=== PATIENT | male | born 1970 | race Caucasian/White ===

== ENCOUNTER 2016-11-25 15:55 | Emergency (ER) | payer OTHER ==
[~2016-11-25] VITALS: Ht 175.3 cm; Wt 104.5 kg
[~2016-11-25 15:55] MED LIST: ONDA4TAB7 SL
[2016-11-25 16:00] VITALS: BP 137/92; PULSE 87; TEMP 36.7; O2SAT 94; Ht 175.3 cm; Wt 104.5 kg
[2016-11-25] MEDS ORDERED: AMOX875T PO (16:13)
[2016-11-25] MEDS ORDERED: DIPHTHERIA/TETANUS/PERTUSSIS 0.5 ML SYR/VIAL IM. ONE (16:15)
[2016-11-25] MEDS ORDERED: ASCO10003 PO (16:21)
--- NOTE | 2016-11-25 16:23 | EMERGENCY ROOM VISIT NOTE ---
History First contact with patient: 16:04 Chief Complaint: BITE Stated Complaint: DOG BITE History of Present Illness The patient is a 46 year old male who presents to the Emergency Room with complaints of a dog bite to his left hand. This injury happened approximately one hour ago at work. 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 He reports standing on a porch, and a dog running up behind him. The patient reports attempting to push the dog away and was bitten on the left third and fourth fingers. He denies any significant pain, loss of function, paresthesias or numbness of the hand or fingers. She and is uncertain of his last tetanus immunization. He rates his discomfort a 2 out of 10. The patient is [id number]. The patient reports that the owner/operator did show him his rabies tags which was up-to-date. Review of Systems 10 system review was performed and was negative except for pertinent positives and negatives as indicated in history of present illness Past Medical/Surgical History Medical Problems: (1) Calculus Of Ureter (2) Diaphragmatic Hernia (3) Diverticulitis Colon (W/O Ment Of Hemorrhage) Surgical Problems: (1) History of appendectomy Family History No significant family history Social History Smoking Status: Never Smoker Smokeless Tobacco Use: Yes Alcohol Use: occasionally Marital Status: Housing Status: lives with significant other Occupation Status: employed Current/Historical Medications Scheduled Amoxicillin & Pot Clavulanate (Augmentin 875-125 mg), 1 TAB PO BID Scheduled PRN Ondansetron (Zofran Odt), 1-2 TABS SL Q6H PRN for Nausea Allergies Uncoded Allergies: PERCOCET (Allergy, Unknown, ITCHING, 12/31/03) Physical Exam Vital Signs Date Time Temp Pulse Resp B/P Pulse Ox O2 Delivery O2 Flow Rate FiO2 11/25/16 16:00 36.7 87 18 137/92 94 Room Air Physical Exam CONSTITUTIONAL: Healthy and well nourished. Alert and oriented X 3 with positive affect. HEENT: Normocephalic, atraumatic. Pupils equal, round and reactive. NECK: Full active range of motion without discomfort. MUSCULOSKELETAL: Examination of the left hand shows a small puncture wound to the dorsal third and fourth fingers over the middle phalanges. The patient has full flexion and extension of the fingers against resistance without any loss of strength or significant discomfort. Capillary refill is less than 2 seconds. INTEGUMENTARY: No rash or other significant dermatologic conditions noted. NEUROLOGIC: Left hand and fingers are sensory intact. Medical Decision & Procedures ED Course Patient history and physical exam were performed. Nurse's notes were reviewed. The patient was administered Adacel IM. The wounds were cleansed and covered with antibiotic bandages. The patient was provided a prescription for Augmentin. He was instructed to watch for any signs of infection. Ibuprofen or Tylenol as needed for pain. Follow-up with Worker's Compensation physician as needed, or return to the emergency department for any concerns. The patient was happy with plan of care, voiced understanding of all discharge instructions , and denied any significant pain at the time of discharge. Medical Decision Impression Primary Impression: Dog bite of multiple sites of left hand and fingers Additional Impression: Work related injury Departure Information Dispostion Home / Self-Care Prescriptions Amoxicillin & Pot Clavulanate (Augmentin 875-125 mg) 1 Tab Tab 1 TAB PO BID for 5 Days, #10 TAB Prov: Wesley Villatoro PA 11/25/16 Forms HOME CARE DOCUMENTATION FORM, IMPORTANT VISIT INFORMATION Patient Instructions A Signature Page, [facility] Additional Instructions Complete all Augmentin antibiotics as prescribed. Keep wounds clean and covered with an antibiotic ointment and bandage until they heal. Watch for any developing infection. Ibuprofen or Tylenol as needed for pain.
== END 2016-11-25 16:25 | disposition home or self-care (01) ==
LOC: C.EDB 15:56 → C.EDD 16:25
DX: S61.402A Unspecified open wound of left hand, initial encounter (principal); W54.0XXA Bitten by dog, initial encounter; Y99.0 Civilian activity done for income or pay; N20.1 Calculus of ureter; K44.9 Diaphragmatic hernia without obstruction or gangrene; F17.200 Nicotine dependence, unspecified, uncomplicated; Z23 Encounter for immunization

== ENCOUNTER 2018-01-11 11:43 | Emergency (ER) | payer OTHER ==
[~2018-01-11] VITALS: Ht 175.3 cm; Wt 110.0 kg
[~2018-01-11 11:43] MED LIST changes: +ASCO10003 PO; -ONDA4TAB7 SL
[2018-01-11 11:48] VITALS: TEMP 36.9; O2SAT 96; Ht 175.3 cm; Wt 110.0 kg
[2018-01-11] MEDS ORDERED: SODIUM CHLORIDE 0.9% 1000ML 1,000 ML IV STA (12:11)
[2018-01-11] MEDS ORDERED: ACETAMINOPHEN 500 MG TAB PO STA (12:23)
[2018-01-11] MEDS ORDERED: IBUPROFEN 600 MG TAB PO STA (12:23)
[2018-01-11 12:26] LABS: BASO % 0.1 %; BASO ABS # 0.01 K/uL (0-0.2); EOS % 2.9 %; HEMATOCRIT 45.6 % (42-52); HEMOGLOBIN 16.6 g/dL (14.0-18.0); IG# 0.01 K/uL (0.00-0.02); LYMPH % 28.9 %; MEAN CELL VOLUME 85.2 fL (80-100); MEAN CORPUSCULAR HGB CONC 36.4 g/dl (32-36); MEAN PLATELET VOLUME 9.2 fL (7.4-10.4); MONO % 8.2 %; MONO ABS # 0.57 K/uL (0.11-0.59); NEUT % 59.8 %; NEUT ABS # 4.12 K/uL (1.4-6.5); PLATELET COUNT 175 K/uL (130-400); RED CELL DISTRIBUTION WIDTH CV 12.4 % (11.5-14.5); RED CELL DISTRIBUTION WIDTH SD 38.4 fL (36.4-46.3); WHITE BLOOD COUNT 6.91 K/uL (4.8-10.8)
[2018-01-11 12:33] LABS: PTT PATIENT 24.8 SECONDS (21.0-31.0)
--- NOTE | 2018-01-11 12:42 | EMERGENCY ROOM VISIT NOTE ---
History Report prepared by Marco A: Dru Sanders Under the Supervision of: Dr. Vu Matute M.D. 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 pt reports he has an infected tooth in his left jaw for which he has a dentist appt on january 23. pt at this time states he feels weak and tired. History of Present Illness The patient is a 47 year old white male with a past medical history of kidney stone, diverticulitis, s/p appendectomy who presents to the ED with a cc of a near-syncopal episode occurring shortly prior to arrival. 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 [place] "dizzy and disoriented" during the event, but did not actually lose consciousness. No rapid position changes prior to the episode. Positive mild shortness of breath, neck "stiffness " and productive cough. Negative palpitations, chest pain, nausea, vomiting, diarrhea, diaphoresis. Patient notes that he has an infected tooth on the left side right now. Had back pain and abdominal pain last night. No recent trauma. Lifts heavy objects at work regularly. No recent travel. Not a smoker. No recent antibiotic use. Source of History: patient Onset: Shortly prior to arrival Position: other (Global) Quality: other (near-syncope) Timing: other (episode) Associated Symptoms: + cough (productive), + neck pain ("stiffness"), + SOB (mild), + abdominal pain (last night), + back pain (last night), No LOC, No diaphoresis, No chest pain, No nausea, No vomiting, No diarrhea Note: Negative: palpitations. Review of Systems See HPI for pertinent positives and negatives. A total of ten systems were reviewed and were otherwise negative. Past Medical & Surgical Medical Problems: (1) Calculus Of Ureter (2) Diaphragmatic Hernia (3) Diverticulitis Colon (W/O Ment Of Hemorrhage) Surgical Problems: (1) History of appendectomy Family History No significant family history Social History Smoking Status: Never Smoker Alcohol Use: occasionally Marital Status: Housing Status: lives with significant other Occupation Status: employed Current/Historical Medications Scheduled Ascorbic Acid (Vitamin C), 1,000 MG PO DAILY Allergies Uncoded Allergies: PERCOCET (Allergy, Unknown, ITCHING, 12/31/03) Physical Exam Vital Signs Date Time Temp Pulse Resp B/P (MAP) Pulse Ox O2 Delivery O2 Flow Rate FiO2 01/11/18 13:00 53 18 120/94 97 Room Air 01/11/18 12:23 53 130/88 63 132/94 64 124/92 01/11/18 11:59 56 01/11/18 11:48 36.9 56 18 137/88 96 Room Air 01/11/18 11:48 96 Room Air Physical Exam GENERAL: Awake, alert, well-appearing, NAD HENT: Normocephalic, atraumatic. No sign of adenogenic infection. EYES: Normal conjunctiva. Sclera non-icteric. NECK: Supple. No nuchal rigidity. FROM. RESPIRATORY: CTAB, no rhonchi, wheezing, crackles CARDIAC: RRR, no MRG ABDOMEN: Soft, NTND, BS+ MSK: No chest wall TTP, no LE edema NEURO: GCS 15, CN 2-12 intact, moves all 4s on command SKIN: No rash or jaundice noted. Bilateral upper arms consistent with prior skin graft. Medical Decision & Procedures Laboratory Results 01/11/18 11:55 Red Blood Count 5.35, Mean Corpuscular Volume 85.2, Mean Corpuscular Hemoglobin 31.0, Mean Corpuscular Hemoglobin Concent 36.4, Mean Platelet Volume 9.2, Neutrophils (%) (Auto) 59.8, Lymphocytes (%) (Auto) 28.9, Monocytes (%) (Auto) 8.2, Eosinophils (%) (Auto) 2.9, Basophils (%) (Auto) 0.1, Neutrophils # (Auto) 4.12, Lymphocytes # (Auto) 2.00, Monocytes # (Auto) 0.57, Eosinophils # (Auto) 0.20, Basophils # (Auto) 0.01 01/11/18 11:55 Test 01/11/18 11:55 01/11/18 12:00 White Blood Count 6.91 K/uL (4.8-10.8) Red Blood Count 5.35 M/uL (4.7-6.1) Hemoglobin 16.6 g/dL (14.0-18.0) Hematocrit 45.6 % (42-52) Mean Corpuscular Volume 85.2 fL (80-100) Mean Corpuscular Hemoglobin 31.0 pg (25-34) Mean Corpuscular Hemoglobin Concent 36.4 g/dl (32-36) Platelet Count 175 K/uL (130-400) Mean Platelet Volume 9.2 fL (7.4-10.4) Neutrophils (%) (Auto) 59.8 % Lymphocytes (%) (Auto) 28.9 % Monocytes (%) (Auto) 8.2 % Eosinophils (%) (Auto) 2.9 % Basophils (%) (Auto) 0.1 % Neutrophils # (Auto) 4.12 K/uL (1.4-6.5) Lymphocytes # (Auto) 2.00 K/uL (1.2-3.4) Monocytes # (Auto) 0.57 K/uL (0.11-0.59) Eosinophils # (Auto) 0.20 K/uL (0-0.5) Basophils # (Auto) 0.01 K/uL (0-0.2) RDW Standard Deviation 38.4 fL (36.4-46.3) RDW Coefficient of Variation 12.4 % (11.5-14.5) Immature Granulocyte % (Auto) 0.1 % Immature Granulocyte # (Auto) 0.01 K/uL (0.00-0.02) Prothrombin Time 10.6 SECONDS (9.0-12.0) Prothromb Time International Ratio 1.0 (0.9-1.1) Activated Partial Thromboplast Time 24.8 SECONDS (21.0-31.0) Partial Thromboplastin Ratio 1.0 Anion Gap 6.0 mmol/L (3-11) Est Creatinine Clear Calc Drug Dose 116.2 ml/min Estimated GFR () 109.9 Estimated GFR (Non- 94.8 BUN/Creatinine Ratio 11.5 (10-20) Calcium Level 8.4 mg/dl (8.5-10.1) Phosphorus Level 2.9 mg/dl (2.5-4.9) Magnesium Level 2.1 mg/dl (1.8-2.4) Total Bilirubin 0.6 mg/dl (0.2-1) Direct Bilirubin 0.1 mg/dl (0-0.2) Aspartate Amino Transf (AST/SGOT) 60 U/L (15-37) Alanine Aminotransferase (ALT/SGPT) 127 U/L (12-78) Alkaline Phosphatase 111 U/L (45-117) Troponin I < 0.015 ng/ml (0-0.045) Total Protein 7.1 gm/dl (6.4-8.2) Albumin 3.8 gm/dl (3.4-5.0) Thyroid Stimulating Hormone (TSH) 0.853 uIu/ml (0.300-4.500) Urine Color YELLOW Urine Appearance CLEAR (CLEAR) Urine pH 6.5 (4.5-7.5) Urine Specific [place] 1.010 (1.000-1.030) Urine Protein NEG (NEG) Urine Glucose (UA) NEG (NEG) Urine Ketones NEG (NEG) Urine Occult Blood NEG (NEG) Urine Nitrite NEG (NEG) Urine Bilirubin NEG (NEG) Urine Urobilinogen NEG (NEG) Urine Leukocyte Esterase SMALL (NEG) Urine WBC (Auto) 1-5 /hpf (0-5) Urine RBC (Auto) 0-4 /hpf (0-4) Urine Hyaline Casts (Auto) 0 /lpf (0-5) Urine Epithelial Cells (Auto) 0-5 /lpf (0-5) Urine Bacteria (Auto) NEG (NEG) Laboratory results reviewed by me Medications Administered Medications (Trade) Dose Ordered Sig/Azra Route Start Time Stop Time Status Last Admin Dose Admin Sodium Chloride 1,000 ml @ 999 mls/hr Q1H1M STAT IV 01/11/18 12:11 01/11/18 13:11 DC 01/11/18 12:28 999 MLS/HR Ibuprofen (Motrin Tab) 600 mg NOW STAT PO 01/11/18 12:23 01/11/18 12:25 DC 01/11/18 12:59 600 MG Acetaminophen (Tylenol Tab) 1,000 mg NOW STAT PO 01/11/18 12:23 01/11/18 12:25 DC 01/11/18 12:59 1,000 MG ECG Per My Interpretation Indication: syncope Rate (beats per minute): 61 Findings: Q waves (inferior, 3, AVF), T-wave inversion (inferior, 3, AVF. ), left axis deviation, other (Normal intervals.) Comparison ECG Date: no prior available ED Course 1205: The patient was evaluated in room B12B. A complete history and physical exam was performed. 1330: I reevaluated the patient. Discussed results and discharge instructions: he verbalized understanding and agreement. The patient is ready for discharge. Medical Decision The patient is a 47 year old white male with a past medical history of kidney stone, diverticulitis, s/p appendectomy who presents to the ED with a cc of a near-syncopal episode occurring shortly prior to arrival. Differential diagnosis: Etiologies such as vasovagal event, infection, hypoglycemia, electrolyte abnormalities, cardiac sources, intracerebral event, toxicologic, neurologic, as well as others were entertained. Patient was seen and evaluated at the bedside. 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 Patient denies any true syncope. Patient denies chest pain or shortness of breath. Patient did complain of some mild neck pain but he has no neck stiffness and no knuckle rigidity. No signs of meningismus. Patient is a non-smoker. Patient has not seen a primary care physician in some time. We will exam the patient is very well-appearing and has a nonfocal neurologic exam. EKG did show T-wave inversions and Q waves in the inferior leads. These are likely old as the patient does not have any current chest pain. Patient did have blood work, chest x-ray completed. Patient was also given p.o. fluids and Motrin and Tylenol. Patient's blood work is fairly unremarkable. Patient had a troponin. Patient was told that he had some changes on his EKG however he is still very low risk as he has no other complaints of chest pain or shortness of breath. Patient was told he needs to follow-up as an outpatient. Patient was given follow-up recommendations with regard to seeing PCP. Patient was also told that his liver enzymes are mildly elevated and avoid things like alcohol and Tylenol for the time being. Patient was deemed suitable for outpatient follow-up and treatment at this time. Patient was given strict follow-up, discharge, and return precautions. All questions were answered. Patient was deemed suitable for outpatient follow-up at this time. Patient agreed with the plan of care and was safely discharged home. Medication Reconcilliation Current Medication List: was personally reviewed by me Blood Pressure Screening Patient's blood pressure: Normal blood pressure Blood pressure disposition: Did not require urgent referral Impression Primary Impression: Near syncope Additional Impression: Lightheaded Scribe Attestation The scribe's documentation has been prepared under my direction and personally reviewed by me in its entirety. I confirm that the note above accurately reflects all work, treatment, procedures, and medical decision making performed by me. Departure Information Dispostion Home / Self-Care Referrals No Doctor, Assigned (PCP) Patient Instructions Dizziness Fainting Poss Causes, My [facility] Additional Instructions Please return to the emergency department if you have worsening or recurrent symptoms not amenable to at-home treatment. Please call for a follow-up appointment with her primary care physician. Please take your medications as prescribed. If you have other concerns and/or complaints please feel free to also call your primary care physician's office or return the ED for further evaluation, management, and treatment. You may take 600 mg Ibuprofen every 6 hours as needed for pain with food for no more than 2 consecutive days. Please follow up with a primary care physician. Also discuss rechecking your liver function tests as they were mildly elevated here today. Avoid alcohol and tylenol at this time. Take your medications as prescribed. You have been examined and treated today on an emergency basis only. This is not a substitute for, or an effort to provide, complete comprehensive medical care. It is impossible to recognize and treat all injuries or illnesses in a single emergency department visit. It is therefore important that you follow up closely with [facility], your PCP, and/or your specialist(s). Call as soon as possible for an appointment. Thank you for your time and consideration. I look forward to speaking with you again soon. Please don't hesitate to call us if you have any questions. Problem Qualifiers
[2018-01-11 12:52] LABS: ALBUMIN 3.8 gm/dl (3.4-5.0); BLOOD UREA NITROGEN 11 mg/dl (7-18); CALCIUM 8.4 mg/dl (8.5-10.1); CARBON DIOXIDE 26 mmol/L (21-32); CREATININE 0.94 mg/dl (0.60-1.40); GLUCOSE 96 mg/dl (70-99); POTASSIUM 3.8 mmol/L (3.5-5.1); SODIUM 140 mmol/L (136-145)
[2018-01-11 13:03] LABS: ALKALINE PHOSPHATASE 111 U/L (45-117); ALT/SGPT 127 U/L (12-78); AST/SGOT 60 U/L (15-37); PHOSPHORUS 2.9 mg/dl (2.5-4.9); TOTAL PROTEIN 7.1 gm/dl (6.4-8.2)
[2018-01-11 13:50] VITALS: BP 149/95; PULSE 49; O2SAT 98
== END 2018-01-11 13:51 | disposition home or self-care (01) ==
LOC: EDBD 11:43 → C.EDB 11:43
DX: R55 Syncope and collapse (principal); R42 Dizziness and giddiness; R05 Cough; M54.2 Cervicalgia; Z87.19 Personal history of other diseases of the digestive system; Z87.442 Personal history of urinary calculi; Z88.5 Allergy status to narcotic agent